=== PATIENT | male | born 1945 | race Two or more races ===

== ENCOUNTER 2020-11-09 06:23 | Inpatient (IN) | payer OTHER ==
[2020-11-06 11:48] VITALS: BMI 21.6
[2020-11-09] MEDS ORDERED: SODIUM CHLORIDE 0.9% P/F 10 ML VIAL IJ ONE (06:51)
[2020-11-09] MEDS ORDERED: BUPIVACAINE HCL/PF 0.5% (5MG/ML) 10 ML VIAL ONE ×2 (06:51→08:25)
[2020-11-09] MEDS ORDERED: MIDAZOLAM HCL 2 MG/2 ML SINGLE DOSE VIAL ONE ×2 (06:51→09:58)
[2020-11-09] MEDS ORDERED: BUPIVACAINE LIPOSOME/PF (EXPAREL) 266 MG/20 ML VIAL ONE (06:51)
[2020-11-09] MEDS ORDERED: PROPOFOL 20 ML ONE ×2 (07:18→09:02)
[2020-11-09] MEDS ORDERED: VANCOMYCIN 1,000 MG VIAL (RESTRICTED TO ID ONLY) ONE (07:58)
[2020-11-09] MEDS ORDERED: ceFAZolin SODIUM 1 GM VIAL ONE (08:48)
[2020-11-09] MEDS ORDERED: TRANEXAMIC ACID 1000 MG/10 ML VIAL ONE (08:57)
[2020-11-09] MEDS ORDERED: PHENYLEPHRINE HCL 10 MG/1 ML SINGLE DOSE VIAL ONE (09:35)
[2020-11-09] MEDS ORDERED: BUPIVICAINE 0.25%/MORPH PF/KETOROLAC - 51ML DISP.SYRINGE IA ONE ×2 (09:48→10:04)
[2020-11-09] MEDS ORDERED: VANCOMYCIN 1,000 MG VIAL (RESTRICTED TO ID ONLY) IVPB ONE (10:06)
[2020-11-09] MEDS ORDERED: ONDANSETRON 4 MG/2 ML VIAL IVPUSH PRN (10:46)
[2020-11-09] MEDS ORDERED: MAG HYDROX/AL HYDROX/SIMETH 30 ML UNIT-DOSE CUP PO PRN (10:46)
[2020-11-09] MEDS ORDERED: oxyCODONE HCL 5 MG TABLET PO PRN (10:54)
[2020-11-09] MEDS ORDERED: LACTATED RINGERS SOLUTION 1,000 ML IV SCH ×2 (11:00)
[2020-11-09] MEDS: ACETAMINOPHEN 1000 MG/100 ML VIAL (NON FORMULARY) IVPB ONE (11:25)
[2020-11-09] MEDS: metFORMIN HCL 500 MG TABLET (FP) PO SCH (17:19)
[2020-11-09] MEDS: INSULIN (NOVOLOG) ASPART 100 UNITS/ML 10ML VIAL SQ SCH (17:20)
[2020-11-09] MEDS: CEFAZOLIN 2 GM/D5W 2 GM/50 ML ML IVPB SCH (17:20)
[2020-11-09] MEDS: oxyCODONE HCL 5 MG TABLET PO PRN (19:20)
[2020-11-09] MEDS: ATORVASTATIN CA 40 MG TABLET (FP) PO SCH (21:19)
[2020-11-09] MEDS: oxyCODONE HCL 10 MG SUSTAINED ACTING TABLET PO SCH (21:19)
[2020-11-09] MEDS: metoPROLOL SUCCINATE 25 MG TAB.SR.24H (FP) PO SCH (21:19)
[2020-11-09] MEDS: TAMSULOSIN HCL 0.4 MG CAP PO SCH (21:19)
[2020-11-09] MEDS: SENNOSIDES/DOCUSATE COMBO (SENNA PLUS) TABLET (UD) PO SCH (21:19)
[2020-11-10] MEDS: CEFAZOLIN 2 GM/D5W 2 GM/50 ML ML IVPB SCH (02:00)
[2020-11-10] MEDS: metFORMIN HCL 500 MG TABLET (FP) PO SCH ×2 (06:34→16:52)
[2020-11-10] MEDS: INSULIN (NOVOLOG) ASPART 100 UNITS/ML 10ML VIAL SQ SCH ×5 (06:37→23:42)
[2020-11-10] MEDS: ACETAMINOPHEN 1000 MG/100 ML VIAL (NON FORMULARY) IVPB ONE (07:11)
[2020-11-10 08:24] LABS: HEMATOCRIT 32.5 % (35.4-49); HEMOGLOBIN 10.9 GM/dl (11.7-16.9); MCHC 33.4 g/dl (32.0-35.9); MEAN CELL VOLUME 83.9 fl (80-96); MEAN PLT VOLUME 7.7 fl (7.5-11.1); PLATELET COUNT 288 10^3/uL (134-434); RBC 3.87 M/mm3 (4.00-5.60); RDW 12.9 % (11.9-15.9); WHITE BLOOD COUNT 6.2 K/mm3 (4.0-10.8)
[2020-11-10] MEDS: ENOXAPARIN NA (PORCINE) 40 MG/0.4 ML DISP.SYRIN SQ SCH (08:36)
[2020-11-10 08:45] LABS: CALCIUM 8.4 mg/dl (8.5-10); CREATININE 1.2 mg/dl (0.55-1.3)
[2020-11-10] MEDS: SENNOSIDES/DOCUSATE COMBO (SENNA PLUS) TABLET (UD) PO SCH ×2 (09:33→21:33)
[2020-11-10] MEDS: oxyCODONE HCL 10 MG SUSTAINED ACTING TABLET PO SCH ×2 (09:33→21:32)
[2020-11-10] MEDS: PANTOPRAZOLE 40 MG TABLET PO SCH (09:34)
[2020-11-10] MEDS: FERROUS SO4 325 MG TABLET (FP) PO SCH (09:34)
[2020-11-10] MEDS: ENALAPRIL MALEATE 10 MG TABLET PO SCH (09:34)
[2020-11-10 09:43] LABS: CALCIUM 8.4 mg/dl (8.5-10); CREATININE 1.1 mg/dl (0.55-1.3)
[2020-11-10] MEDS ORDERED: FUROSEMIDE 20 MG TABLET (FP) PO ONE (09:53)
[2020-11-10] MEDS ORDERED: SODIUM ZIRCONIUM CYCLOSILICATE (LOKELMA) 5 GM PACKET PO SCH (10:00)
[2020-11-10] MEDS ORDERED: ACETAMINOPHEN 325 MG TABLET (FP) PO PRN (17:18)
[2020-11-10] MEDS: ATORVASTATIN CA 40 MG TABLET (FP) PO SCH (21:32)
[2020-11-10] MEDS: TAMSULOSIN HCL 0.4 MG CAP PO SCH (21:32)
[2020-11-10] MEDS: metoPROLOL SUCCINATE 25 MG TAB.SR.24H (FP) PO SCH (21:33)
[2020-11-10] MEDS: oxyCODONE HCL 5 MG TABLET PO PRN (21:33)
[2020-11-11] MEDS: oxyCODONE HCL 5 MG TABLET PO PRN (01:29)
[2020-11-11] MEDS: INSULIN (NOVOLOG) ASPART 100 UNITS/ML 10ML VIAL SQ SCH ×4 (06:11→22:02)
[2020-11-11] MEDS: metFORMIN HCL 500 MG TABLET (FP) PO SCH ×2 (07:00→16:49)
[2020-11-11] MEDS: ENOXAPARIN NA (PORCINE) 40 MG/0.4 ML DISP.SYRIN SQ SCH (08:35)
[2020-11-11 08:51] LABS: BASO % 1.2 % (0-2.0); EOS % 1.1 % (0-4.5); HEMATOCRIT 29.2 % (35.4-49); HEMOGLOBIN 9.7 GM/dl (11.7-16.9); LYMPH % 17.9 % (8-40); MCH 28.2 pg (25.7-33.7); MCHC 33.3 g/dl (32.0-35.9); MEAN CELL VOLUME 84.7 fl (80-96); MEAN PLT VOLUME 8.4 fl (7.5-11.1); MONO % 12.9 % (3.8-10.2); NEUT % 66.9 % (42.8-82.8); PLATELET COUNT 235 10^3/uL (134-434); RBC 3.45 M/mm3 (4.00-5.60); WHITE BLOOD COUNT 8.9 K/mm3 (4.0-10.8)
[2020-11-11] MEDS: SENNOSIDES/DOCUSATE COMBO (SENNA PLUS) TABLET (UD) PO SCH ×2 (09:18→22:04)
[2020-11-11] MEDS: PANTOPRAZOLE 40 MG TABLET PO SCH (09:18)
[2020-11-11] MEDS: FERROUS SO4 325 MG TABLET (FP) PO SCH (09:18)
[2020-11-11] MEDS: oxyCODONE HCL 10 MG SUSTAINED ACTING TABLET PO SCH ×2 (09:18→22:02)
[2020-11-11] MEDS: ENALAPRIL MALEATE 10 MG TABLET PO SCH ×2 (09:19→13:21)
[2020-11-11 09:21] LABS: ALBUMIN 2.9 g/dl (3.4-5.0); BILIRUBIN,TOTAL 0.8 mg/dl (0.2-1); CALCIUM 8.3 mg/dl (8.5-10); CREATININE 1.1 mg/dl (0.55-1.3); MAGNESIUM 1.2 mg/dL (1.8-2.4); TOT PROT 5.5 g/dl (6.4-8.2)
[2020-11-11] MEDS ORDERED: MAGNESIUM SULF 50% (8.12 MEQ/2 ML-1 GM VIAL) IVPB ONE (09:43)
[2020-11-11] MEDS ORDERED: SODIUM CHLORIDE 1,000 ML IV SCH (09:45)
[2020-11-11] MEDS: POLYETHYLENE GLYCOL (HEALTHYLAX) 3350 17 GM PACKET PO SCH (13:21)
[2020-11-11] MEDS: TAMSULOSIN HCL 0.4 MG CAP PO SCH (22:01)
[2020-11-11] MEDS: ATORVASTATIN CA 40 MG TABLET (FP) PO SCH (22:01)
[2020-11-11] MEDS: metoPROLOL SUCCINATE 25 MG TAB.SR.24H (FP) PO SCH (22:05)
[2020-11-12] MEDS: metFORMIN HCL 500 MG TABLET (FP) PO SCH (06:48)
[2020-11-12] MEDS: INSULIN (NOVOLOG) ASPART 100 UNITS/ML 10ML VIAL SQ SCH ×2 (06:49→11:47)
[2020-11-12 08:24] LABS: ALBUMIN 2.6 g/dl (3.4-5.0); BILIRUBIN,TOTAL 0.9 mg/dl (0.2-1); CALCIUM 8.1 mg/dl (8.5-10); CREATININE 0.9 mg/dl (0.55-1.3); MAGNESIUM 1.7 mg/dL (1.8-2.4); TOT PROT 5.4 g/dl (6.4-8.2)
[2020-11-12 08:30] LABS: BASO % 0.7 % (0-2.0); EOS % 2.1 % (0-4.5); HEMATOCRIT 25.5 % (35.4-49); HEMOGLOBIN 8.8 GM/dl (11.7-16.9); LYMPH % 8.1 % (8-40); MCH 28.7 pg (25.7-33.7); MCHC 34.3 g/dl (32.0-35.9); MEAN CELL VOLUME 83.7 fl (80-96); MEAN PLT VOLUME 8.3 fl (7.5-11.1); MONO % 13.9 % (3.8-10.2); NEUT % 75.2 % (42.8-82.8); PLATELET COUNT 198 10^3/uL (134-434); RBC 3.05 M/mm3 (4.00-5.60)
[2020-11-12] MEDS: SENNOSIDES/DOCUSATE COMBO (SENNA PLUS) TABLET (UD) PO SCH (09:50)
[2020-11-12] MEDS: PANTOPRAZOLE 40 MG TABLET PO SCH (09:51)
[2020-11-12] MEDS: POLYETHYLENE GLYCOL (HEALTHYLAX) 3350 17 GM PACKET PO SCH (09:51)
[2020-11-12] MEDS: oxyCODONE HCL 10 MG SUSTAINED ACTING TABLET PO SCH (09:51)
[2020-11-12] MEDS: ENOXAPARIN NA (PORCINE) 40 MG/0.4 ML DISP.SYRIN SQ SCH (09:51)
[2020-11-12] MEDS: FERROUS SO4 325 MG TABLET (FP) PO SCH (09:51)
[2020-11-12] MEDS: ENALAPRIL MALEATE 10 MG TABLET PO SCH (09:54)
[2020-11-12 10:00] VITALS: BP 119/52; PULSE 81; TEMP 99.1
[2020-11-12] MEDS ORDERED: FUROSEMIDE 20 MG TABLET (FP) PO SCH (10:00)
== END 2020-11-12 14:38 | DRG 470 ==
LOC: FM/S 06:23
PROVIDERS: ADMIT Orthopaedic Surgery; ATTEND Nurse Practitioner Acute Care
PROC: 8E0Y0CZ Robotic Assisted Procedure of Lower Extremity, Open Approach (ICD-10-PCS; 2020-11-09)
PROC: 0SRC0J9 Replacement of Right Knee Joint with Synthetic Substitute, Cemented, Open Approach (ICD-10-PCS; principal; 2020-11-09 09:03)
DX: M17.11 Unilateral primary osteoarthritis, right knee (principal); I50.22 Chronic systolic (congestive) heart failure; E87.1 Hypo-osmolality and hyponatremia; I10 Essential (primary) hypertension; E78.5 Hyperlipidemia, unspecified; I25.10 Atherosclerotic heart disease of native coronary artery without angina pectoris; Z95.1 Presence of aortocoronary bypass graft; Z95.0 Presence of cardiac pacemaker; I25.2 Old myocardial infarction; E11.9 Type 2 diabetes mellitus without complications; I11.0 Hypertensive heart disease with heart failure; Z86.16 Personal history of COVID-19; E87.5 Hyperkalemia; E83.42 Hypomagnesemia
CPT/HCPCS: 36415; 73560-TC-RT-FY; 80048; 80053; 82962; 83735; 85025; 85027; 88305-TC; 88311-TC; 93005; 94760; 97010-GP; 97116-GP; 97162-GP; J0131

== ENCOUNTER 2021-10-11 09:44 | Inpatient (IN) | payer OTHER ==
[2021-10-04 15:27] VITALS: BMI 20.5
[2021-10-11] MEDS ORDERED: MIDAZOLAM HCL 2 MG/2 ML SINGLE DOSE VIAL ONE (10:44)
[2021-10-11] MEDS ORDERED: FENTANYL CITRATE/PF 50 MCG/ML VIAL ONE (10:44)
[2021-10-11] MEDS ORDERED: BUPIVACAINE HCL/PF 0.5% (5MG/ML) 10 ML VIAL ONE (10:44)
[2021-10-11] MEDS ORDERED: BUPIVACAINE LIPOSOME/PF (EXPAREL) 266 MG/20 ML VIAL ONE (10:44)
[2021-10-11] MEDS ORDERED: VANCOMYCIN 1,000 MG VIAL (RESTRICTED TO ID ONLY) ONE (10:52)
[2021-10-11] MEDS ORDERED: ceFAZolin SODIUM 1 GM VIAL ONE (11:39)
[2021-10-11] MEDS ORDERED: ATROPINE SO4 0.4 MG/1 ML VIAL ONE (11:39)
[2021-10-11] MEDS ORDERED: TRANEXAMIC ACID 1000 MG/10 ML VIAL ONE (12:34)
[2021-10-11] MEDS ORDERED: BUPIVICAINE 0.25%/MORPH PF/KETOROLAC - 51ML DISP.SYRINGE IA ONE (12:58)
[2021-10-11] MEDS ORDERED: ONDANSETRON 4 MG/2 ML VIAL IVPUSH PRN (13:24)
[2021-10-11] MEDS ORDERED: oxyCODONE HCL 5 MG TABLET PO PRN ×2 (13:25)
[2021-10-11] MEDS ORDERED: MAG HYDROX/AL HYDROX/SIMETH 30 ML UNIT-DOSE CUP PO PRN (13:50)
[2021-10-11] MEDS ORDERED: ACETAMINOPHEN INJECTION 100 ML IVPB ONE (13:58)
[2021-10-11] MEDS ORDERED: ACETAMINOPHEN 1000 MG/100 ML BAG IVPB ONE (14:00)
[2021-10-11] MEDS ORDERED: LACTATED RINGERS SOLUTION 1,000 ML IV SCH (14:00)
[2021-10-11] MEDS ORDERED: LACTATED RINGERS SOLUTION 1000 ML INFUS.BAG IV SCH (14:30)
[2021-10-11] MEDS: KETOROLAC TROMETHAMINE 30 MG/1 ML VIAL IVPUSH SCH ×2 (15:57→19:46)
[2021-10-11] MEDS: metFORMIN HCL 500 MG TABLET (FP) PO SCH (16:10)
[2021-10-11] MEDS ORDERED: DEXTROSE 5%-WATER - 100 ML IVPB ONE (19:39)
[2021-10-11] MEDS ORDERED: CEFAZOLIN SODIUM 2 GM VIAL ONE (19:40)
[2021-10-11] MEDS: CEFAZOLIN SODIUM 2 GM in DEXTROSE 5%-WATER - 100 ML IVPB SCH (19:45)
[2021-10-11] MEDS: ACETAMINOPHEN 500 MG TABLET (FP) PO SCH (19:45)
[2021-10-11] MEDS: SENNOSIDES/DOCUSATE COMBO (SENNA PLUS) TABLET (UD) PO SCH (21:28)
[2021-10-11] MEDS: oxyCODONE HCL 10 MG SUSTAINED ACTING TABLET PO SCH (21:29)
[2021-10-11] MEDS: ATORVASTATIN CA 40 MG TABLET (FP) PO SCH (21:30)
[2021-10-11] MEDS: TAMSULOSIN HCL 0.4 MG CAP PO SCH (21:30)
[2021-10-12] MEDS ORDERED: CEFAZOLIN SODIUM 2 GM VIAL ONE (00:52)
[2021-10-12] MEDS ORDERED: DEXTROSE 5%-WATER - 100 ML IVPB ONE (00:52)
[2021-10-12] MEDS: ACETAMINOPHEN 500 MG TABLET (FP) PO SCH ×4 (01:01→20:07)
[2021-10-12] MEDS: CEFAZOLIN SODIUM 2 GM in DEXTROSE 5%-WATER - 100 ML IVPB SCH (03:18)
[2021-10-12] MEDS: ONDANSETRON 4 MG/2 ML VIAL IVPUSH PRN ×2 (04:18→23:00)
[2021-10-12 09:04] LABS: HEMATOCRIT 34.5 % (35.4-49); HEMOGLOBIN 11.5 G/dL (11.7-16.9); MCH 26.7 pg (25.7-33.7); MCHC 33.2 g/dl (32.0-35.9); MEAN CELL VOLUME 80.5 fl (80-96); MEAN PLT VOLUME 8.9 fl (7.5-11.1); PLATELET COUNT 184.7 10^3/uL (134-434); RBC 4.29 10^6/uL (4.00-5.60); RDW 17.6 % (11.9-15.9); WHITE BLOOD COUNT 8.1 10^3/uL (4.0-10.8)
[2021-10-12 09:05] LABS: CALCIUM 8.9 mg/dl (8.5-10); CREATININE 1.1 mg/dl (0.55-1.3)
[2021-10-12] MEDS ORDERED: SODIUM CHLORIDE 500 ML IV STA (09:25)
[2021-10-12] MEDS ORDERED: ENALAPRIL MALEATE 10 MG TABLET PO SCH (10:00)
[2021-10-12] MEDS: MULTIVITAMINS (DAILY MVI) TABLET (FP) PO SCH (10:28)
[2021-10-12] MEDS: SENNOSIDES/DOCUSATE COMBO (SENNA PLUS) TABLET (UD) PO SCH ×2 (10:28→22:38)
[2021-10-12] MEDS: PANTOPRAZOLE 40 MG TABLET PO SCH (10:29)
[2021-10-12] MEDS: ENOXAPARIN NA (PORCINE) 30 MG/0.3 ML DISP.SYRIN SQ SCH (10:29)
[2021-10-12] MEDS: metFORMIN HCL 500 MG TABLET (FP) PO SCH ×2 (10:29→17:21)
[2021-10-12] MEDS: oxyCODONE HCL 10 MG SUSTAINED ACTING TABLET PO SCH ×2 (13:05→22:38)
[2021-10-12 15:41] LABS: CALCIUM 8.4 mg/dl (8.5-10)
[2021-10-12] MEDS ORDERED: SODIUM CHLORIDE 1 GM TABLET PO SCH ×2 (17:40→17:59)
[2021-10-12] MEDS: SODIUM CHLORIDE 1 GM TABLET PO SCH (22:38)
[2021-10-12] MEDS: TAMSULOSIN HCL 0.4 MG CAP PO SCH (22:38)
[2021-10-12] MEDS: ATORVASTATIN CA 40 MG TABLET (FP) PO SCH (22:38)
[2021-10-13] MEDS: ACETAMINOPHEN 500 MG TABLET (FP) PO SCH ×3 (02:00→18:15)
[2021-10-13] MEDS: metFORMIN HCL 500 MG TABLET (FP) PO SCH ×2 (08:03→18:16)
[2021-10-13 08:34] LABS: HEMATOCRIT 28.4 % (35.4-49); HEMOGLOBIN 9.6 G/dL (11.7-16.9); MCHC 33.8 g/dl (32.0-35.9); MEAN CELL VOLUME 79.7 fl (80-96); MEAN PLT VOLUME 8.9 fl (7.5-11.1); PLATELET COUNT 169.2 10^3/uL (134-434); RBC 3.56 10^6/uL (4.00-5.60); RDW 17.6 % (11.9-15.9); WHITE BLOOD COUNT 8.1 10^3/uL (4.0-10.8)
[2021-10-13] MEDS ORDERED: traMADol HCL 50 MG TABLET PO PRN ×2 (10:33→10:58)
[2021-10-13] MEDS ORDERED: ENALAPRIL MALEATE 10 MG TABLET PO SCH (10:34)
[2021-10-13] MEDS: MULTIVITAMINS (DAILY MVI) TABLET (FP) PO SCH (10:36)
[2021-10-13] MEDS: SENNOSIDES/DOCUSATE COMBO (SENNA PLUS) TABLET (UD) PO SCH ×2 (10:36→21:18)
[2021-10-13] MEDS: SODIUM CHLORIDE 1 GM TABLET PO SCH ×3 (10:36→21:18)
[2021-10-13] MEDS: POLYETHYLENE GLYCOL (HEALTHYLAX) 3350 17 GM PACKET PO SCH (10:37)
[2021-10-13] MEDS: PANTOPRAZOLE 40 MG TABLET PO SCH (10:37)
[2021-10-13] MEDS: ENOXAPARIN NA (PORCINE) 30 MG/0.3 ML DISP.SYRIN SQ SCH (10:37)
[2021-10-13] MEDS: oxyCODONE HCL 10 MG SUSTAINED ACTING TABLET PO SCH ×2 (10:40→22:13)
[2021-10-13 12:44] LABS: MAGNESIUM 1.3 mg/dL (1.8-2.4); URIC ACID 3.1 mg/dl (2.6-7.2)
[2021-10-13] MEDS ORDERED: ENOXAPARIN NA (PORCINE) 40 MG/0.4 ML DISP.SYRIN SQ SCH (13:14)
[2021-10-13] MEDS ORDERED: MAGNESIUM SULF 50% (8.12 MEQ/2 ML-1 GM VIAL) IVPB ONE ×2 (13:30→19:29)
[2021-10-13] MEDS: MAGNESIUM OXIDE 400 MG TABLET (FP) PO SCH ×2 (14:46→21:17)
[2021-10-13 19:10] LABS: ALBUMIN 3.1 g/dl (3.4-5.0); BILIRUBIN,TOTAL 0.7 mg/dl (0.2-1); CALCIUM 8.8 mg/dl (8.5-10); CREATININE 0.9 mg/dl (0.55-1.3); MAGNESIUM 1.4 mg/dL (1.8-2.4); TOT PROT 6.1 g/dl (6.4-8.2)
[2021-10-13] MEDS: TAMSULOSIN HCL 0.4 MG CAP PO SCH (21:17)
[2021-10-13] MEDS: ATORVASTATIN CA 40 MG TABLET (FP) PO SCH (21:18)
[2021-10-13] MEDS: ASPIRIN 81 MG CHEWABLE TABLETS PO SCH (21:19)
[2021-10-14] MEDS: ACETAMINOPHEN 500 MG TABLET (FP) PO SCH ×3 (01:08→13:29)
[2021-10-14] MEDS: metFORMIN HCL 500 MG TABLET (FP) PO SCH (06:22)
[2021-10-14] MEDS: SODIUM CHLORIDE 1 GM TABLET PO SCH ×2 (06:22→13:36)
[2021-10-14 08:32] LABS: HEMATOCRIT 26.9 % (35.4-49); HEMOGLOBIN 9.1 G/dL (11.7-16.9); MCH 26.8 pg (25.7-33.7); MCHC 33.8 g/dl (32.0-35.9); MEAN CELL VOLUME 79.4 fl (80-96); MEAN PLT VOLUME 8.8 fl (7.5-11.1); RBC 3.39 10^6/uL (4.00-5.60); RDW 17.6 % (11.9-15.9); WHITE BLOOD COUNT 7.5 10^3/uL (4.0-10.8)
[2021-10-14 08:37] LABS: CALCIUM 8.8 mg/dl (8.5-10); CREATININE 0.9 mg/dl (0.55-1.3)
[2021-10-14] MEDS ORDERED: ASPIRIN COATED 81 MG TABLET.EC PO SCH (10:00)
[2021-10-14] MEDS: MULTIVITAMINS (DAILY MVI) TABLET (FP) PO SCH (10:52)
[2021-10-14] MEDS: SENNOSIDES/DOCUSATE COMBO (SENNA PLUS) TABLET (UD) PO SCH (10:52)
[2021-10-14] MEDS: ASPIRIN 81 MG CHEWABLE TABLETS PO SCH (10:52)
[2021-10-14] MEDS: MAGNESIUM OXIDE 400 MG TABLET (FP) PO SCH (10:53)
[2021-10-14] MEDS: PANTOPRAZOLE 40 MG TABLET PO SCH (10:54)
[2021-10-14] MEDS: POLYETHYLENE GLYCOL (HEALTHYLAX) 3350 17 GM PACKET PO SCH (10:55)
[2021-10-14] MEDS: oxyCODONE HCL 10 MG SUSTAINED ACTING TABLET PO SCH (11:57)
[2021-10-14 14:18] VITALS: BP 96/54; PULSE 76; TEMP 97.6
[2021-10-14 15:14] LABS: IRON SERUM 13 ug/dL (50-175); TOTAL IRON BINDING CAPACITY 286 ug/dL (250-450)
[2021-10-15] MEDS ORDERED: ENALAPRIL MALEATE 10 MG TABLET PO SCH (10:00)
== END 2021-10-14 14:51 | disposition home or self-care (01) | DRG 470 ==
LOC: FM/S 09:44
PROVIDERS: ADMIT Orthopaedic Surgery; ATTEND Orthopaedic Surgery
PROC: 8E0Y0CZ Robotic Assisted Procedure of Lower Extremity, Open Approach (ICD-10-PCS; 2021-10-11)
PROC: 0SRD0J9 Replacement of Left Knee Joint with Synthetic Substitute, Cemented, Open Approach (ICD-10-PCS; principal; 2021-10-11 11:55)
DX: M17.12 Unilateral primary osteoarthritis, left knee (principal); I50.22 Chronic systolic (congestive) heart failure; E87.1 Hypo-osmolality and hyponatremia; E78.5 Hyperlipidemia, unspecified; I25.10 Atherosclerotic heart disease of native coronary artery without angina pectoris; I65.29 Occlusion and stenosis of unspecified carotid artery; E11.9 Type 2 diabetes mellitus without complications; I11.0 Hypertensive heart disease with heart failure; N40.0 Benign prostatic hyperplasia without lower urinary tract symptoms; E83.42 Hypomagnesemia; E87.5 Hyperkalemia; D64.9 Anemia, unspecified; Z96.651 Presence of right artificial knee joint; Z95.1 Presence of aortocoronary bypass graft; Z95.810 Presence of automatic (implantable) cardiac defibrillator
CPT/HCPCS: 36415; 73560-TC-LT-FY; 80048; 80053; 82570; 82962; 83540; 83550; 83735; 83930; 83935; 84295; 84300; 84439; 84443; 84484; 84550; 85025; 85027; 88305-TC; 88311-TC; 93005; 94760; 97010-GP; 97116-GP; 97162-GP; C9803-CS; U0003; U0005